=== PATIENT | female | born 1960 | race Caucasian/White ===

== ENCOUNTER 2016-12-22 00:28 | Inpatient (IN) | payer OTHER ==
[2016-12-22] MEDS ORDERED: DUONEB (A & A) INH ONE (00:50)
--- NOTE | 2016-12-22 00:50 | PROVIDER DOCUMENTATION ---
HPI-Respiratory General - General Chief Complaint: Cough Stated Complaint: SOB/CHEST PAIN Time Seen by Provider: 12/22/16 00:48 Source: patient Allergies/Adverse Reactions: Patient Allergies Allergy/AdvReac Type Severity Reaction Status Date / Time No Known Allergies Allergy Verified 07/03/16 06:18 Home Medications: Home Medication List Medication Instructions Recorded Confirmed Last Taken Type Fluticasone Propionate [Flonase 9.9 ml NS DAILY #1 spray.susp 07/03/16 Unknown Rx Allergy Relief] Loratadine [Claritin] 10 mg PO QHS #30 tablet 07/03/16 Unknown Rx Magnesium Citrate 296 ml PO ONCE #1 solution 07/03/16 Unknown Rx Polyethylene Glycol 3350 [Miralax] 17 gm PO DAILY PRN PRN #90 07/03/16 Unknown Rx powd.pack - History of Present Illness-Resp Nature of Presenting Problem: Pt c/o Cough, SOB for about 5 days now. Symptoms continue to get worse. Pt c/o chills. Quality of Pain: reports: aching Severity in ED: reports: mild Onset/Duration: reports: 2 days ago Timing: reports: still present, getting worse Context: reports: recent URI Exposure: reports: unknown cause Cough Quality/Degree: reports: moderate, productive cough Episode Frequency: no prior episodes Modifying Factors: improves with: nothing Associated Symptoms: reports: chest pain/soreness, cough, fever/chills, shortness of breath Similar Symptoms Previously?: No Recently seen or treated by another doctor?: No Review of Systems - Adult - REVIEW OF SYSTEMS - ADULT Constitutional: reports: see HPI, chills, fever. denies: no symptoms reported, fatique, night sweats, weight gain, weight loss, other Eyes: reports: no symptoms reported. denies: see HPI, discharge, dry eyes, decreased vision, blurred vision, double vision, eye pain, redness, other Ears, Nose, Mouth & Throat: reports: no symptoms reported. denies: see HPI, ear discharge, ear pain, hearing loss, tinnitus, epistaxis, sinus problem, nose pain, loose teeth, mouth/dental pain, mouth swelling, hoarseness, throat pain, throat swelling, other Cardiovascular: reports: no symptoms reported. denies: see HPI, chest pain, edema, heart murmur, irregular heart rate, orthopnea, palpitations, poor circulation, PND, syncope, other Respiratory: reports: see HPI, cough, dyspnea on exertion, shortness of breath. denies: no symptoms reported, chronic cough, excessive sputum production, hemoptysis, pleurisy, wheezing, other Gastrointestinal: reports: no symptoms reported. denies: see HPI, abdominal pain, hematemesis, constipation, diarrhea, difficulty swallowing, frequent heartburn, nausea, poor appetite, rectal bleeding, vomiting, other Genitourinary: reports: no symptoms reported. denies: see HPI, dysuria, discharge, frequency, flank pain, frequent UTI's, hematuria, hesitency, incontinence, urinary retention, urgency, other Musculoskeletal: reports: no symptoms reported. denies: see HPI, bone pain, back pain, frequent leg cramps, joint pain, joint swelling, muscle aches, muscle weakness, neck pain, other Neurological: reports: no symptoms reported. denies: see HPI, ataxia, dizziness /vertigo, headache/migraines, loss of balance, numbness, paresthesia, seizure, slurred speech, syncope, tremors, other All Other Systems: Reviewed and Negative Past History - Adult - PAST MEDICAL HISTORY-ADULT Review of Records: reports: Old Records Reviewed, Nursing Assessment Review, Medications Reviewed, Social history reviewed & non-contributory. Major Childhood Illnesses: reports: denies history Cardiovascular: reports: HTN Respiratory: reports: denies history Gastrointestinal: reports: denies history Obstetrical/Gynecological: reports: denies history Genitourinary: reports: denies history Musculoskeletal: reports: denies history Neurological: reports: denies history Psychiatric: reports: denies history Endocrine/Immune: reports: denies history Other Conditions: reports: denies history - PRIOR SURGERIES/PROCEDURES Surgical/Procedure History: reports: none - PRIOR HOSPITALIZATIONS Prior Hospitalizations: reports: for similar symptoms - FAMILY HISTORY Family History: reviewed, not pertinent Physical Exam-General - PHYSICAL EXAM-ADULT Initial Vital Signs Reviewed: Yes - CONSTITUTIONAL General Appearance: appears well, alert, no apparent distress. negative: mild distress, moderate distress, severe distress, cachetic, obese, thin, anxious, lethargic, slow to respond, obtunded, combative, other - EYES Eyes: PERRL/EOMI, pink conjunctivae. negative: fundi clear, no AV nicking, anisocoria, conjuctival exudate, EOM palsy, meningismus, pale conjunctivae, photophobia, sclera injected, scleral icterus, subconjunctival hemorrhage, sunken eyes, other - HEAD, EARS, NOSE, MOUTH & THROAT HENMT: normocephalic/atraumatic, moist mucous membranes, normal ENT inspection, TMs normal, pharynx normal. negative: angioedema, dental decay, hearing deficit , pharyngeal erythema, tonsillar exudate, TM abnormal, TM obscurred by cerumen, frontal tenderness, maxillary tenderness, other - NECK Neck: non-tender, full range of motion, supple, normal inspection. negative: Brudzinski's sign, carotid bruit, C-spine tenderness, limited range of motion, lymphadenopathy, meningismus, trachial deviation, tender lateral, tender midline , thyromegaly, other - RESPIRATORY Respiratory: chest non-tender, no pleuratic chest pain, no respiratory distress , no accessory muscle use, decreased breath sounds, rhonchi - CARDIOVASCULAR Cardiovascular: normal peripheral pulses, regular rate, rhythm, no edema, no gallop, no JVD, no murmur. negative: JVD, bradycardia, tachycardia, diastolic murmur, systolic murmur, gallop/S3, gallop/S4, extra beats, friction rub, irregularly irregular, PMI displaced laterally, other - GASTROINTESTINAL (ABDOMEN) Abdominal Exam: normal bowel sounds, non tender, soft, no organomegaly, no pulsatile mass. negative: abdominal bruit, abnormal bowel sounds, distended, guarding, rigid, rebound, tenderness, hernia, mass, hepatomegaly, spleenomegaly , McBurney's point tenderness, Langston's sign, obturator sign, prominent aortic pulsations, psoas, Rovsing's sign, other - GENITOURINARY Female Genitalia/Pelvic Exam: deferred - LYMPHATIC Lymphatic: no adenopathy. negative: axilla node tender, cervical node tenderness, inguinal node tender, enlargement, striations, streaking, other - MUSCULOSKELETAL Back Exam: normal inspection, no CVA tenderness, no vertebral tenderness. negative: CVA tenderness, decreased range of motion, ecchymosis, kyphosis, lordosis, muscle spasm, scoliosis, swelling, vertebral tenderness, other Extremity: normal range of motion, non-tender, normal gait, normal inspection, no pedal edema, no calf tenderness, normal capillary refill, pelvis stable. negative: abnormal NV exam, calf tenderness, deformity, erythema, inflammation, joint effusion, pulse deficit, pedal edema, slow capillary refill, swelling, tenderness, other Peripheral Pulses: radial (R): 2+, radial (L): 2+, dorsalis-pedis (R): 2+, dorsalis-pedis (L): 2+ - SKIN Integumentary: normal color, normal turgor, warm/dry - NEUROLOGIC Neurologic: grossly normal - PSYCHIATRIC Psych/Mental Status: oriented x 3 Progress - PLAN OF CARE/RESULTS Progress/Plan/Lab Results: Laboratory Tests 12/22/16 12/22/16 01:00 01:00 WBC 5.28 RBC 4.09 L Hgb 13.0 Hct 39.7 MCV 97.1 MCH 31.8 H MCHC 32.7 L RDW Std Deviation 12.0 Plt Count 171 MPV 10.3 Immature Gran % (Auto) 0.2 Neut % (Auto) 52.8 Lymph % (Auto) 27.8 Lyon % (Auto) 11.2 H Eos % (Auto) 7.6 Baso % (Auto) 0.4 Immature Gran # (Auto) 0.01 Neut # (Auto) 2.79 Lymph # (Auto) 1.47 Lyon # (Auto) 0.59 Eos # (Auto) 0.40 Baso # (Auto) 0.02 Sodium 139 Potassium 3.8 Chloride 105 Carbon Dioxide 22 L Anion Gap 12 BUN 8 Creatinine 0.6 Estimated GFR/1.73 m2 > 60 BUN/Creatinine Ratio 13 Glucose 107 H Calculated Osmolality 276 Calcium 8.5 L Total Bilirubin 0.20 AST 22 ALT 18 Alkaline Phosphatase 85 Total Protein 6.6 Albumin 4.1 Globulin 3.0 Albumin/Globulin Ratio 2.0 Orders Category Date Time Status Saline Loc NOW Care 12/22/16 00:50 Active CHEST-2 VIEWS [RAD] Stat Exams 12/22/16 00:44 Taken BLOOD CULTURE [BLDCUL] Stat Lab 12/22/16 00:50 Ordered CBC WITH DIFF [HEME] Stat Lab 12/22/16 01:00 Completed COMPREHENSIVE METABOLIC PANEL [CHEM] Stat Lab 12/22/16 01:00 Completed Albuterol 2.5MG/Ipratrop 0.5MG [Duoneb (A & A)] Med 12/22/16 00:50 Discontinued 3 ml INH NOW ONE CefTRIAXONE 1 GM/NS [Rocephin 1 gm/Ns] 50 ml Med 12/22/16 01:53 Active IV NOW Methylprednisolone Sod Succ [Solu-Medrol] Med 12/22/16 01:54 Discontinued 125 mg IV NOW ONE Aerosol Treatments Routine Oth 12/22/16 00:51 Completed Aerosol Treatments Stat Oth 12/22/16 00:51 Completed Pulse Oximetry Stat Ot 12/22/16 00:50 Active Vital Signs Temp Pulse Resp BP Pulse Ox 12/22/16 01:05 75 20 99 12/22/16 00:31 97.2 F L 84 20 140/073 99 No Known Allergies Allergy (Verified 07/03/16 06:18) Fluticasone Propionate [Flonase Allergy Relief] 9.9 ml NS DAILY #1 spray.susp Loratadine [Claritin] 10 mg PO QHS #30 tablet 07/03/16 Magnesium Citrate 296 ml PO ONCE #1 solution 07/03/16 Polyethylene Glycol 3350 [Miralax] 17 gm PO DAILY PRN PRN #90 powd.pack Laboratory 12/22/16 12/22/16 01:00 01:00 WBC 5.28 RBC 4.09 L Hgb 13.0 Hct 39.7 MCV 97.1 MCH 31.8 H MCHC 32.7 L RDW Std Deviation 12.0 Plt Count 171 MPV 10.3 Immature Gran % (Auto) 0.2 Neut % (Auto) 52.8 Lymph % (Auto) 27.8 Lyon % (Auto) 11.2 H Eos % (Auto) 7.6 Baso % (Auto) 0.4 Immature Gran # (Auto) 0.01 Neut # (Auto) 2.79 Lymph # (Auto) 1.47 Lyon # (Auto) 0.59 Eos # (Auto) 0.40 Baso # (Auto) 0.02 Sodium 139 Potassium 3.8 Chloride 105 Carbon Dioxide 22 L Anion Gap 12 BUN 8 Creatinine 0.6 Estimated GFR/1.73 m2 > 60 BUN/Creatinine Ratio 13 Glucose 107 H Calculated Osmolality 276 Calcium 8.5 L Total Bilirubin 0.20 AST 22 ALT 18 Alkaline Phosphatase 85 Total Protein 6.6 Albumin 4.1 Globulin 3.0 Albumin/Globulin Ratio 2.0 - XRAY 1 XRAY Study: Chest Impression: Abnormal (RLL pneumonia per Dr. Lin.) Departure - Departure Time of Disposition Order: 02:05 DIAGNOSIS: Pneumonia Qualifiers: Pneumonia type: due to unspecified organism Laterality: right Lung location: lower lobe of lung Qualified Code(s): J18.1 - Lobar pneumonia, unspecified organism Disposition: ADMITTED INPATIENT 09 Certified Medical Emergency: Emergent Condition: Stable Attestation - Physician/ JANUSZ Attestation Patient care was provided by Advanced Practice Provider:: Yes Advanced Practice Provider:: Mendoza Dorado Advanced Practice Provider documentation review:: The Mid-level provider documentation, treatment plan and medical decision making was reviewed by the physician who agrees with all treatment and medical decision making by the P. Physician Attestation - Physician Attestation I, the provider, attest to the following statement:: Harley Lin Physician documentation Attestation:: This documentation recorded by the scribe accurately reflects the service I personally performed and the decisions made by me.
[2016-12-22 01:13] LABS: MANUAL DIFF NEEDED? NO
[2016-12-22 01:36] LABS: BASO% 0.4 % (0.0-0.8); EOS% 7.6 % (0.0-10.0); HEMATOCRIT 39.7 % (37.0-47.0); IMM GRAN# 0.01 X1000 (0.0-0.04); IMM GRAN% 0.2 % (0.0-0.5); LYMPH# 1.47 X1000 (1.2-3.4); LYMPH% 27.8 % (20.5-51.1); MCH 31.8 PG (27-31); MCHC 32.7 g/dL (33-37); MCV 97.1 FL (81-99); MONO# 0.59 X1000 (0.11-0.59); MONO% 11.2 % (1.7-9.3); MPV 10.3 FL (7.4-10.4); NEUT% 52.8 % (42.2-75.2); PLT 171 X1000 (130-400); RBC 4.09 XMIL (4.2-5.4)
[2016-12-22 01:43] LABS: AGAP 12; ALBUMIN 4.1 g/dL (3.5-5.0); ALKALINE PHOSPHATASE 85 U/L (32-104); BUN 8 mg/dL (8-22); CALCIUM 8.5 mg/dL (8.8-10.2); CHLORIDE 105 mmol/L (98-107); COSMO 276; GOT 22 U/L (10-30); GPT 18 U/L (10-36); POTASSIUM 3.8 mmol/L (3.5-5.1); SODIUM 139 mmol/L (136-145); TCO2 22 mmol/L (25-35); TOTAL PROTEIN 6.6 g/dL (6.3-8.3)
[2016-12-22] MEDS ORDERED: ROCEPHIN 1 GM/NS 50 ML IV ONE (01:53)
[2016-12-22] MEDS ORDERED: SOLU-MEDROL IV ONE (01:54)
[2016-12-22] MEDS ORDERED: MORPHINE IV PRN ×2 (02:06→07:36)
[2016-12-22] MEDS ORDERED: ZOFRAN IV PRN ×2 (02:06→08:38)
[2016-12-22] MEDS ORDERED: TYLENOL PO PRN ×2 (02:06→08:38)
[2016-12-22] MEDS: DUONEB (A & A) INH SCH ×5 (03:18→20:30)
[2016-12-22] MEDS: TORADOL IV PRN ×2 (04:45→15:17)
--- NOTE | 2016-12-22 05:59 | EKG Report ---
Test Performed on : 12/22/2016 00:37:04 AM Test Reason : Blood Pressure : / mmHG Vent. Rate : 085 BPM Atrial Rate : 085 BPM P-R Int : 156 ms QRS Dur : 064 ms QT Int : 374 ms P-R-T Axes : 038 003 013 degrees QTc Int : 445 ms Normal sinus rhythm. Septal infarct , age undetermined Abnormal ECG When compared with ECG of 19-MAY-2014 10:41, Vent. rate has increased BY 28 BPM Septal infarct is now present Unconfirmed Result
--- NOTE | 2016-12-22 08:04 | Diag Imaging Result Document ---
PROCEDURE NAME: CHEST-2 VIEWS - 12/22/2016 CHEST X-RAY, TWO VIEWS: COMPARISON: 07/03/2016. FINDINGS: The lungs are normally expanded and clear. Heart size and mediastinal contours are normal. No pneumothorax or pleural effusion. IMPRESSION: Negative exam.
[2016-12-22] MEDS: SOLU-MEDROL IV SCH ×2 (09:36→17:13)
--- NOTE | 2016-12-22 14:38 | HISTORY AND PHYSICAL ---
PRIMARY CARE PHYSICIAN: Dr. Morgan. CHIEF COMPLAINT: Cough, shortness of breath, subjective fever, chills, and body aches for 5 days that have progressively worsened. HISTORY OF PRESENTING ILLNESS: This is a 56-year-old female, who presented to [facility] ER with complaints of subjective fever, chills, body aches, productive cough of yellow sputum and shortness of breath for 5 days that had progressively worsened. Workup in the ER showed a physician-read chest x-ray as a right lower lobe pneumonia. So, she is being admitted for further evaluation and treatment. PAST MEDICAL HISTORY: None. PAST SURGICAL HISTORY: Hysterectomy, a right carpal tunnel repair and a bilateral tubal ligation. FAMILY HISTORY: Noncontributory. SOCIAL HISTORY: She currently lives with family. Denies any tobacco, alcohol, or illicit drug use. ALLERGIES: She has no known drug allergies. HOME MEDICATIONS: She was taking amoxicillin 875 p.o. q. 12 hours that will be held, vitamin D 2 50,000 units p.o. as directed will be held. LABORATORY DATA/X-RAY DATA: Showed a white blood cell count of 5.28, hemoglobin 13, hematocrit 39.7, platelets 171. Sodium of 139, potassium 3.8, chloride 105, CO2 22, BUN of 8, creatinine 0.6, glucose 107. Chest x-ray per ER physician interpretation was a right lower lobe pneumonia. Radiology-read chest x-ray states that the lungs are normally expanded and clear. Heart size and mediastinal contours are normal. No pneumothorax or pleural effusion. An EKG showed normal sinus rhythm at 85. REVIEW OF SYSTEMS: She was positive for subjective fever, chills, body aches, productive cough, shortness of breath. Denied any chest pain, abdominal pain, constipation, diarrhea, burning or hurting with urination. PHYSICAL EXAMINATION: VITAL SIGNS: On arrival, she had a temperature of 97.2 degrees, pulse 84, respirations 20, blood pressure 140/73, satting 99% on room air. GENERAL: This is a 56-year-old female, who is sitting up in the bed and answers questions appropriately. HEENT: Normocephalic and atraumatic. Pupils are equal, round, and reactive to light. Extraocular movements are intact. Oropharynx and nares are clear. NECK: Supple. LUNGS: With decreased breath sounds on the right middle and lower lobe, otherwise clear on the left. Equal lung expansion. Chest wall movement noted. HEART: Regular rate and rhythm. No murmurs, rubs, or gallops. ABDOMEN: Soft, nontender, nondistended. Bowel sounds are present x4 quadrants. EXTREMITIES: No clubbing, cyanosis, or edema. NEUROLOGICAL: The cranial nerves 2-12 are grossly intact. ASSESSMENT: 1. Right lower lobe pneumonia. 2. Cough. 3. Dyspnea. PLAN: She was admitted to the medical unit at [facility]. Placed on a regular diet. Blood cultures x2 are pending. She has been placed on DuoNebs q. 4 hours routinely and q. 2 hours p.r.n. shortness of breath, Solu-Medrol 40 mg IV q. 8 hours, Rocephin 1 gram IV q. 24 hours. We will check a CT of the thorax with contrast today just to rule out any abnormal findings, and to verify whether not she definitely has a pneumonia or not. We will review blood cultures when they are resulted. Dictated by GINA Cantu for Kash Urbina MD
[2016-12-22] MEDS ORDERED: NS 500 ML IV SCH (19:15)
[2016-12-23] MEDS: DUONEB (A & A) INH SCH ×7 (00:02→23:11)
[2016-12-23] MEDS: ROCEPHIN 1 GM/NS 50 ML IV SCH (01:47)
[2016-12-23] MEDS: SOLU-MEDROL IV SCH ×3 (01:55→20:36)
[2016-12-23] MEDS: DUONEB (A & A) INH PRN (01:57)
[2016-12-23] MEDS ORDERED: MIRALAX PO ONE (02:00)
--- NOTE | 2016-12-23 11:30 | Diag Imaging Result Document ---
PROCEDURE NAME: CT THORAX W/CONTRAST - 12/23/2016 CT THORAX WITH IV CONTRAST: COMPARISON: None available. FINDINGS: There is mild subsegmental atelectasis at the lung bases. The lungs are clear, otherwise. No airspace consolidations are identified. There is no pleural fluid collection. There is no pneumothorax. The heart is not enlarged. There is no evidence of significant mediastinal or hilar lymphadenopathy. Limited views of the upper abdomen reveal multifocal cortical thinning at the right kidney suggesting cortical scarring. IMPRESSION: 1. Mild subsegmental atelectasis at the lung bases. No evidence of pneumonia or acute chest pathology, otherwise. 2. Other incidental/nonacute findings detailed above.
--- NOTE | 2016-12-23 14:22 | PROGRESS NOTE ---
DATE: 12/23/2016 SUBJECTIVE: The patient notes that she thought she was feeling a little bit better, however when she got up to take a shower, she became increasingly short of breath. Increasing dyspnea on exertion. She denies any current chest pains or palpitations. OBJECTIVE: Vital Signs: Temperature 98, pulse 94, respiratory 20, BP 135/61. General: Patient well developed, well nourished. She is currently in moderate respiratory distress. She is awake, alert. Neck: Supple. CV: Regular rate. Chest: Positive wheezing diffusely with decreased air movement but equal and slightly improved from yesterday's exam. IMAGING STUDIES: CT: No pneumonia. LABORATORY DATA: Labs: Stable. ASSESSMENT: 1. Chronic obstructive pulmonary disease with exacerbation with moderate wheezing. 2. Cough. 3. Shortness of breath. PLAN: We will wean steroids. We will continue to follow. Hopefully home in 1-2 days. It does not appear as though she has pneumonia however will continue on Rocephin currently.
[2016-12-23] MEDS: TORADOL IV PRN (20:35)
[2016-12-24] MEDS: ROCEPHIN 1 GM/NS 50 ML IV SCH (01:06)
[2016-12-24] MEDS: DUONEB (A & A) INH SCH ×2 (04:10→08:15)
[2016-12-24] MEDS: TORADOL IV PRN (05:49)
[2016-12-24 05:56] VITALS: BP 146/69
[2016-12-24] MEDS: DUONEB (A & A) INH PRN (05:58)
[2016-12-24] MEDS: SOLU-MEDROL IV SCH (09:31)
--- NOTE | 2016-12-25 06:14 | DISCHARGE SUMMARY ---
ADMISSION DATE: 12/22/2016 DISCHARGE DATE: 12/24/2016 PRIMARY CARE PHYSICIAN: Dr. Morgan. DISCHARGE DIAGNOSES: 1. Right lower lobe pneumonia, improved. 2. Asthma, improving. 3. Wheezing, resolved. 4. Cough. 5. Shortness of breath, improved. CONSULTATIONS: None. PROCEDURES: None. HOSPITAL COURSE: Patient is a 56-year-old female who was admitted as noted on the HPI secondary to increased cough, congestion, shortness of breath, fevers, and chills. She was treated in the usual fashion. Thankfully, she had an uneventful hospital course. On discharge, she was awake, alert. She was in no distress. She was feeling much better and therefore she will be discharged home. DISPOSITION: The patient will be discharged home. TIME SPEND ON DISCHARGE: Thirty-five minutes were spent in discharge planning and instructions. DISCHARGE INSTRUCTIONS: Patient will be discharged with a Medrol Dosepak, albuterol inhaler to be used q.6 p.r.n., and Augmentin 875. She will follow up with her primary care physician in 1-2 weeks. Discussed with the patient that she needs to avoid smokers and lung irritants. Patient understands.
== END 2016-12-24 13:13 | disposition home or self-care (01) | DRG 190 ==
LOC: P.ED 00:28 → P.MEDSURG 02:51
PROVIDERS: ATTEND Family Medicine
DX: J44.0 Chronic obstructive pulmonary disease with (acute) lower respiratory infection (principal); J18.9 Pneumonia, unspecified organism; J44.1 Chronic obstructive pulmonary disease with (acute) exacerbation; J45.909 Unspecified asthma, uncomplicated
CPT/HCPCS: 71020; 71260; 80053; 85025; 87040; 94640; 94761; 96365; 96375; J0696; J1885; J2270; J2920; J2930; J7040; Q9967